=== PATIENT | female | born 1935 | race Caucasian/White ===

== ENCOUNTER → 2017-10-07 | Outpatient (CLI) | payer OTHER, MEDICARE | LOC: BHLMT 15:30 | PROVIDERS: ATTEND Internal Medicine Interventional Cardiology | DX: I10 Essential (primary) hypertension (principal); I05.9 Rheumatic mitral valve disease, unspecified; I35.9 Nonrheumatic aortic valve disorder, unspecified | CPT/HCPCS: 93306-PO ==

== ENCOUNTER → 2017-10-29 | Outpatient (CLI) | payer OTHER, MEDICARE | LOC: BHLMT 15:30 | PROVIDERS: ATTEND Internal Medicine Cardiovascular Disease | DX: R00.2 Palpitations (principal) | CPT/HCPCS: 93225-PO; 93226-PO ==